=== PATIENT | male | born 1975 | race Hispanic/Latino ===

== ENCOUNTER 2019-09-03 10:32 | Emergency (ER) | payer SELFPAY ==
[~2019-09-03] VITALS: Ht 165.1 cm; Wt 123.4 kg
[2019-09-03] MEDS ORDERED: LIDOCAINE HCL 1% LOCAL INJ 20 ML VIAL ONE (10:54)
[2019-09-03] MEDS ORDERED: BACITRACIN ZINC 0.9GM TP ONE ×2 (11:09→11:30)
[2019-09-03] MEDS ORDERED: CEPHALEXIN 500 MG CAP PO ONE (11:15)
[2019-09-03] MEDS ORDERED: KETOROLAC TROMETHAMINE 60 MG/2 ML VIAL IM ONE (11:15)
[2019-09-03] MEDS ORDERED: TRIMETHOPRIM/SULFAMETHOXAZOLE 160-800 MG TAB PO ONE (11:15)
[2019-09-03] MEDS ORDERED: CIPROFLOXACIN 500 MG TAB ONE (11:27)
== END 2019-09-03 12:03 | disposition home or self-care (01) ==
LOC: ER 10:32
DX: L02.01 Cutaneous abscess of face (principal); E78.5 Hyperlipidemia, unspecified
CPT/HCPCS: 10060; 87071; 87205; 99283; J2001